=== PATIENT | male | born 1985 | race African-American/Black ===

== ENCOUNTER 2019-03-18 11:43 | Emergency (ER) | payer OTHER ==
[~2019-03-18] VITALS: Ht 193 cm; Wt 72.7 kg
[2019-03-18 11:52] VITALS: Ht 193 cm; Wt 72.7 kg
[2019-03-18 16:59] LABS: APPEARANCE CLEAR (CLEAR); BILIRUBIN NEGATIVE (NEGATIVE); COLOR STRAW (YELLOW); GLUCOSE NEGATIVE (NEGATIVE); KETONE NEGATIVE (NEGATIVE); NITRITE NEGATIVE (NEGATIVE); PROTEIN NEGATIVE (NEGATIVE); UROBILINOGEN NORMAL (NORMAL)
[2019-03-18] MEDS ORDERED: VOLTAREN75 MG PO (18:54)
[2019-03-18] MEDS ORDERED: MIRALAX17 GM PO (18:54)
[2019-03-18 19:14] VITALS: BP 116/85
== END 2019-03-18 19:14 | disposition home or self-care (01) ==
LOC: D.ER 11:43
PROVIDERS: Emergency Medicine
DX: M54.5 Low back pain (principal); K59.00 Constipation, unspecified

== ENCOUNTER 2019-06-20 20:16 | Emergency (ER) | payer OTHER ==
[~2019-06-20] VITALS: Ht 193 cm; Wt 65.9 kg
[~2019-06-20 20:16] MED LIST: MIRALAX17 GM PO; VOLTAREN75 MG PO
[2019-06-20 20:27] VITALS: Ht 193 cm; Wt 65.9 kg
[2019-06-20] MEDS ORDERED: BENADRYL50 MG PO (20:55)
[2019-06-20] MEDS ORDERED: PENICILLIN V P500 MG PO (20:55)
[2019-06-20] MEDS ORDERED: STERAPRED DS 1010 MG PO (20:56)
[2019-06-20 21:45] VITALS: BP 111/65
== END 2019-06-20 21:45 | disposition home or self-care (01) ==
LOC: D.ER 20:16
DX: J02.0 Streptococcal pharyngitis (principal)